=== PATIENT | male | born 1950 | race Caucasian/White ===

== ENCOUNTER 2021-08-12 11:53 | Inpatient (IN) | payer MEDICARE, MEDICAID ==
[~2021-08-12] VITALS: Ht 170.2 cm; Wt 49.1 kg
[2021-08-12] MEDS ORDERED: BEDAQUILINE FUMARATE 100 MG TABLET PO ONE (15:00)
[2021-08-12] MEDS ORDERED: ALBUTEROL SULFATE 5 MG/ML 20 ML NEB SOLN [BULK] NEB ONE (15:00)
[2021-08-12] MEDS ORDERED: PredniSONE 20 MG TABLET PO ONE (15:00)
[2021-08-12] MEDS ORDERED: IPRATROPIUM BROMIDE 0.5 MG/2.5 ML NEB SOLUTION NEB ONE (15:00)
[2021-08-12 15:27] LABS: BASOPHILS % (AUTO) 0.1 % (0.0-2.0); EOSINOPHILS % (AUTO) 0.1 % (1.0-6.0); HEMATOCRIT 43.7 % (41-53); HEMOGLOBIN 14.5 g/dL (13.5-17.5); LYMPHOCYTES # (AUTO) 0.5 K/uL (1.0-4.8); MEAN CORPUSCULAR HGB CONC 33.1 G/dL (31.0-37.0); MEAN CORPUSCULAR VOLUME 88 fL (80-100); MONOCYTES # (AUTO) 0.9 K/uL (0.1-1.0); NEUTROPHILS # (AUTO) 3.9 K/uL (1.8-7.7); NEUTROPHILS % (AUTO) 73.8 % (40.0-70.0); PLATELET COUNT (AUTO) 119 K/uL (150-450); RED BLOOD CELL COUNT(AUTO) 4.99 MIL/uL (4.50-5.90); RED CELL DISTRIBUTION WIDTH 13.3 % (11.5-14.5)
[2021-08-12 15:37] LABS: ANION GAP 5 mmol/L (8-16); CALCIUM, TOTAL 9.1 mg/dL (8.8-10.5); CARBON DIOXIDE 36 mmol/L (22-29); CHLORIDE 103 mmol/L (98-107); CREATININE 0.88 mg/dL (0.60-1.30); GLUCOSE,RANDOM 108 mg/dL (70-110); SODIUM SERUM 144 mmol/L (136-145); UREA NITROGEN, BLOOD 12 mg/dL (7-18)
[2021-08-12 15:42] LABS: GLOMERULAR FILTR. RATE CALC > 60 mL/min (>60)
[2021-08-12 15:43] LABS: ALANINE AMINOTRANSFERASE 23 U/L (12-78); ALBUMIN 3.2 g/dL (3.4-5.0); ALKALINE PHOSPHATASE 62 U/L (46-116); ASPARTATE AMINOTRANSFERASE 25 U/L (15-37); BILIRUBIN,TOTAL 0.5 mg/dL (0.1-1.0); TOTAL PROTEIN, SERUM 6.9 g/dL (6.4-8.2)
[2021-08-12 16:12] LABS: COVID AG,FIA SOURCE NASOPHARYNGEAL
[2021-08-12] MEDS ORDERED: ACETAMINOPHEN 325 MG TABLET PO PRN (16:15)
[2021-08-12 17:14] LABS: ABG BASE EXCESS 6.1 mmol/L (-2.0-3.0); ABG CARBOXYHEMOGLOBIN 0.7 % (0.0-1.5); ABG HCO3 28.8 mmol/L (22.0-26.0); ABG METHEMOGLOBIN 0.3 % (0.0-1.5); ABG OXYGEN CONTENT 20.8 mL/dL (15.0-23.0); ABG PCO2 52 mmHg (35-45); ABG PH 7.393 (7.35-7.450); ABG TOTAL HEMOGLOBIN 14.9 G/dL (12.0-18.0); PO2, ARTERIAL BG 152.7 mmHg (75.0-83.0); SOURCE, BLOOD GAS ARTERIAL
[2021-08-12 17:15] LABS: O2 DEVICE,BLOOD GAS BIPAP (ROOM AIR); SITE, BLOOD GAS LFT RADIAL; SPONTANEOUS VT, BG 859 ml
[2021-08-12] MEDS ORDERED: REMDESIVIR 200 MG in SODIUM CHLORIDE 0.9% 250 ML IV ONE (18:45)
[2021-08-12 19:02] LABS: BASOPHILS % (AUTO) 0.1 % (0.0-2.0); EOSINOPHILS % (AUTO) 0 % (1.0-6.0); HEMATOCRIT 40.6 % (41-53); HEMOGLOBIN 13.6 g/dL (13.5-17.5); LYMPHOCYTES # (AUTO) 0.2 K/uL (1.0-4.8); LYMPHOCYTES % (AUTO) 4.2 % (22.0-44.0); MEAN CORPUSCULAR HEMOGLOBIN 29.3 pg (26.0-34.0); MEAN CORPUSCULAR HGB CONC 33.4 G/dL (31.0-37.0); MEAN CORPUSCULAR VOLUME 88 fL (80-100); MONOCYTES # (AUTO) 0.5 K/uL (0.1-1.0); MONOCYTES % (AUTO) 9.6 % (2.0-9.0); NEUTROPHILS # (AUTO) 4.6 K/uL (1.8-7.7); PLATELET COUNT (AUTO) 104 K/uL (150-450); RED BLOOD CELL COUNT(AUTO) 4.63 MIL/uL (4.50-5.90); RED CELL DISTRIBUTION WIDTH 13.3 % (11.5-14.5)
[2021-08-12 19:12] LABS: NEUTROPHILS % (AUTO) 86.1 % (40.0-70.0)
[2021-08-12 19:27] LABS: ALANINE AMINOTRANSFERASE 21 U/L (12-78); ALKALINE PHOSPHATASE 54 U/L (46-116); ANION GAP 10 mmol/L (8-16); ASPARTATE AMINOTRANSFERASE 20 U/L (15-37); BILIRUBIN,TOTAL 0.5 mg/dL (0.1-1.0); C-REACTIVE PROTEIN QUANT 6.62 mg/dL (0.00-0.30); CALCIUM, TOTAL 8.7 mg/dL (8.8-10.5); CARBON DIOXIDE 32 mmol/L (22-29); CHLORIDE 101 mmol/L (98-107); FERRITIN 573 ng/mL (26-388); GLUCOSE,RANDOM 185 mg/dL (70-110); LACTATE DEHYDROGENASE 167 U/L (85-227); POTASSIUM 3.1 mmol/L (3.5-5.1); SODIUM SERUM 143 mmol/L (136-145); TOTAL PROTEIN, SERUM 6.5 g/dL (6.4-8.2); UREA NITROGEN, BLOOD 15 mg/dL (7-18)
[2021-08-12 19:28] LABS: GLOMERULAR FILTR. RATE CALC > 60 mL/min (>60)
[2021-08-12] MEDS: DOCUSATE SODIUM 100 MG CAPSULE PO SCH ×2 (21:00→21:43)
[2021-08-12] MEDS ORDERED: POTASSIUM CHLORIDE 10% 40 MEQ/30 ML LIQUID UDCUP PO ONE (21:15)
[2021-08-12] MEDS ORDERED: DIGOXIN 250 MCG/ML 2 ML AMP IVP ONE (23:15)
[2021-08-13] MEDS ORDERED: HEPARIN SODIUM,PORCINE 5,000 UNITS/ML VIAL SQ SCH
[2021-08-13 05:01] LABS: BASOPHILS % (AUTO) 0.2 % (0.0-2.0); EOSINOPHILS % (AUTO) 0 % (1.0-6.0); HEMATOCRIT 39.6 % (41-53); HEMOGLOBIN 13.3 g/dL (13.5-17.5); LYMPHOCYTES # (AUTO) 0.4 K/uL (1.0-4.8); LYMPHOCYTES % (AUTO) 6.6 % (22.0-44.0); MEAN CORPUSCULAR HEMOGLOBIN 29.3 pg (26.0-34.0); MEAN CORPUSCULAR HGB CONC 33.6 G/dL (31.0-37.0); MEAN CORPUSCULAR VOLUME 87 fL (80-100); MONOCYTES # (AUTO) 0.6 K/uL (0.1-1.0); MONOCYTES % (AUTO) 10.9 % (2.0-9.0); NEUTROPHILS # (AUTO) 4.7 K/uL (1.8-7.7); NEUTROPHILS % (AUTO) 82.3 % (40.0-70.0); PLATELET COUNT (AUTO) 121 K/uL (150-450); RED BLOOD CELL COUNT(AUTO) 4.54 MIL/uL (4.50-5.90); RED CELL DISTRIBUTION WIDTH 13.4 % (11.5-14.5)
[2021-08-13 05:28] LABS: ALANINE AMINOTRANSFERASE 19 U/L (12-78); ALBUMIN 2.8 g/dL (3.4-5.0); ALKALINE PHOSPHATASE 50 U/L (46-116); ANION GAP 5 mmol/L (8-16); ASPARTATE AMINOTRANSFERASE 21 U/L (15-37); BILIRUBIN,TOTAL 0.4 mg/dL (0.1-1.0); C-REACTIVE PROTEIN QUANT 7.62 mg/dL (0.00-0.30); CALCIUM, TOTAL 8.7 mg/dL (8.8-10.5); CARBON DIOXIDE 33 mmol/L (22-29); CHLORIDE 104 mmol/L (98-107); CREATININE 0.85 mg/dL (0.60-1.30); FERRITIN 624 ng/mL (26-388); GLUCOSE,RANDOM 118 mg/dL (70-110); POTASSIUM 4.1 mmol/L (3.5-5.1); SODIUM SERUM 142 mmol/L (136-145); TOTAL PROTEIN, SERUM 6.3 g/dL (6.4-8.2); UREA NITROGEN, BLOOD 18 mg/dL (7-18)
[2021-08-13 05:31] LABS: GLOMERULAR FILTR. RATE CALC > 60 mL/min (>60)
[2021-08-13] MEDS: DOCUSATE SODIUM 100 MG CAPSULE PO SCH ×2 (09:00→20:32)
[2021-08-13] MEDS ORDERED: PredniSONE 20 MG TABLET PO SCH (09:00)
[2021-08-13] MEDS: FAMOTIDINE 20 MG TABLET PO SCH (09:51)
[2021-08-13] MEDS: MULTIVITAMINS WITH MINERALS, THERAPEUTIC TABLET PO SCH (09:51)
[2021-08-13] MEDS: ASPIRIN 81 MG CHEWABLE TABLET PO SCH (09:51)
[2021-08-13] MEDS: DEXAMETHASONE SOD PHOS 4 MG/ML VIAL IVP SCH (11:27)
[2021-08-13] MEDS: ENOXAPARIN SODIUM 80 MG/0.8 ML PF SYRINGE SQ SCH ×2 (12:11→20:33)
[2021-08-13] MEDS: PYRAZINAMIDE 500 MG TABLET PO SCH (12:11)
[2021-08-13] MEDS: MOXIFLOXACIN HCL 400 MG TABLET PO SCH (12:12)
[2021-08-13 15:50] VITALS: BP 126/85
[2021-08-13 19:05] VITALS: BP 134/64
[2021-08-13] MEDS: REMDESIVIR 100 MG in SODIUM CHLORIDE 0.9% 250 ML IV SCH (20:33)
[2021-08-14] VITALS: BP 122/70
[2021-08-14 03:40] VITALS: BP 143/83
[2021-08-14 07:58] VITALS: BP 141/78
[2021-08-14 08:30] LABS: BASOPHILS % (AUTO) 0.1 % (0.0-2.0); EOSINOPHILS % (AUTO) 0 % (1.0-6.0); HEMATOCRIT 38.6 % (41-53); LYMPHOCYTES # (AUTO) 0.8 K/uL (1.0-4.8); MEAN CORPUSCULAR HEMOGLOBIN 29.4 pg (26.0-34.0); MEAN CORPUSCULAR HGB CONC 33.8 G/dL (31.0-37.0); MEAN CORPUSCULAR VOLUME 87 fL (80-100); MONOCYTES # (AUTO) 1.3 K/uL (0.1-1.0); MONOCYTES % (AUTO) 7.9 % (2.0-9.0); PLATELET COUNT (AUTO) 160 K/uL (150-450); RED BLOOD CELL COUNT(AUTO) 4.44 MIL/uL (4.50-5.90); RED CELL DISTRIBUTION WIDTH 13.2 % (11.5-14.5)
[2021-08-14] MEDS: DOCUSATE SODIUM 100 MG CAPSULE PO SCH ×4 (08:40→20:43)
[2021-08-14] MEDS: MOXIFLOXACIN HCL 400 MG TABLET PO SCH (08:40)
[2021-08-14] MEDS: ENOXAPARIN SODIUM 80 MG/0.8 ML PF SYRINGE SQ SCH ×2 (08:40→20:43)
[2021-08-14] MEDS: ASPIRIN 81 MG CHEWABLE TABLET PO SCH (08:41)
[2021-08-14] MEDS: PYRAZINAMIDE 500 MG TABLET PO SCH (08:41)
[2021-08-14] MEDS: FAMOTIDINE 20 MG TABLET PO SCH (08:42)
[2021-08-14] MEDS: MULTIVITAMINS WITH MINERALS, THERAPEUTIC TABLET PO SCH (08:42)
[2021-08-14] MEDS: DEXAMETHASONE SOD PHOS 4 MG/ML VIAL IVP SCH (08:42)
[2021-08-14 08:54] LABS: ALANINE AMINOTRANSFERASE 22 U/L (12-78); ALBUMIN 2.8 g/dL (3.4-5.0); ALKALINE PHOSPHATASE 54 U/L (46-116); ANION GAP 8 mmol/L (8-16); ASPARTATE AMINOTRANSFERASE 33 U/L (15-37); BILIRUBIN,TOTAL 0.5 mg/dL (0.1-1.0); C-REACTIVE PROTEIN QUANT 4.44 mg/dL (0.00-0.30); CALCIUM, TOTAL 8.8 mg/dL (8.8-10.5); CARBON DIOXIDE 29 mmol/L (22-29); CHLORIDE 101 mmol/L (98-107); CREATININE 0.84 mg/dL (0.60-1.30); FERRITIN 620 ng/mL (26-388); GLUCOSE,RANDOM 69 mg/dL (70-110); SODIUM SERUM 138 mmol/L (136-145); TOTAL PROTEIN, SERUM 6.3 g/dL (6.4-8.2); UREA NITROGEN, BLOOD 30 mg/dL (7-18)
[2021-08-14 09:14] LABS: GLOMERULAR FILTR. RATE CALC > 60 mL/min (>60)
[2021-08-14 12:37] VITALS: BP 137/65
[2021-08-14 16:12] VITALS: BP 139/73
[2021-08-14] MEDS: REMDESIVIR 100 MG in SODIUM CHLORIDE 0.9% 250 ML IV SCH (20:43)
[2021-08-14 20:45] VITALS: BP 118/72
[2021-08-15 00:42] VITALS: BP 155/91
[2021-08-15 04:54] VITALS: BP 149/91
[2021-08-15 07:39] VITALS: BP 127/73
[2021-08-15] MEDS: DOCUSATE SODIUM 100 MG CAPSULE PO SCH ×3 (08:00→20:11)
[2021-08-15] MEDS: BEDAQUILINE FUMARATE 100 MG TABLET PO SCH (08:00)
[2021-08-15] MEDS: PYRAZINAMIDE 500 MG TABLET PO SCH (08:00)
[2021-08-15] MEDS: MOXIFLOXACIN HCL 400 MG TABLET PO SCH (08:00)
[2021-08-15] MEDS: ASPIRIN 81 MG CHEWABLE TABLET PO SCH (08:01)
[2021-08-15] MEDS: MULTIVITAMINS WITH MINERALS, THERAPEUTIC TABLET PO SCH (08:01)
[2021-08-15] MEDS: FAMOTIDINE 20 MG TABLET PO SCH (08:01)
[2021-08-15] MEDS: DEXAMETHASONE SOD PHOS 4 MG/ML VIAL IVP SCH (08:02)
[2021-08-15] MEDS: ENOXAPARIN SODIUM 80 MG/0.8 ML PF SYRINGE SQ SCH ×2 (08:04→20:12)
[2021-08-15 10:14] LABS: BASOPHILS % (AUTO) 0.1 % (0.0-2.0); EOSINOPHILS % (AUTO) 0 % (1.0-6.0); HEMATOCRIT 45.7 % (41-53); HEMOGLOBIN 15.1 g/dL (13.5-17.5); LYMPHOCYTES % (AUTO) 6.1 % (22.0-44.0); MEAN CORPUSCULAR HEMOGLOBIN 28.8 pg (26.0-34.0); MEAN CORPUSCULAR HGB CONC 33.1 G/dL (31.0-37.0); MEAN CORPUSCULAR VOLUME 87 fL (80-100); NEUTROPHILS # (AUTO) 15.2 K/uL (1.8-7.7); PLATELET COUNT (AUTO) 236 K/uL (150-450); RED BLOOD CELL COUNT(AUTO) 5.25 MIL/uL (4.50-5.90); RED CELL DISTRIBUTION WIDTH 13.3 % (11.5-14.5)
[2021-08-15 10:20] LABS: NEUTROPHILS % (AUTO) 87.8 % (40.0-70.0)
[2021-08-15 10:38] LABS: ALANINE AMINOTRANSFERASE 27 U/L (12-78); ALBUMIN 3.2 g/dL (3.4-5.0); ALKALINE PHOSPHATASE 61 U/L (46-116); ANION GAP 11 mmol/L (8-16); ASPARTATE AMINOTRANSFERASE 32 U/L (15-37); BILIRUBIN,TOTAL 0.6 mg/dL (0.1-1.0); C-REACTIVE PROTEIN QUANT 2.14 mg/dL (0.00-0.30); CALCIUM, TOTAL 9.3 mg/dL (8.8-10.5); CARBON DIOXIDE 29 mmol/L (22-29); CHLORIDE 100 mmol/L (98-107); CREATININE 0.92 mg/dL (0.60-1.30); FERRITIN 608 ng/mL (26-388); GLUCOSE,RANDOM 117 mg/dL (70-110); PHOSPHORUS 3.4 mg/dL (2.5-4.9); POTASSIUM 4.7 mmol/L (3.5-5.1); SODIUM SERUM 140 mmol/L (136-145); TOTAL PROTEIN, SERUM 6.8 g/dL (6.4-8.2); UREA NITROGEN, BLOOD 31 mg/dL (7-18)
[2021-08-15 10:41] LABS: GLOMERULAR FILTR. RATE CALC > 60 mL/min (>60)
[2021-08-15 11:23] VITALS: BP 120/81
[2021-08-15 15:37] VITALS: BP 136/79
[2021-08-15 19:55] VITALS: BP 126/74
[2021-08-15] MEDS: REMDESIVIR 100 MG in SODIUM CHLORIDE 0.9% 250 ML IV SCH (20:11)
[2021-08-15] MEDS ORDERED: SODIUM CHLORIDE 0.9% 500 ML IV ONE (20:13)
[2021-08-16 00:15] VITALS: BP 145/88
[2021-08-16 04:11] VITALS: BP 146/77
[2021-08-16 07:42] VITALS: BP 133/82
[2021-08-16] MEDS: MOXIFLOXACIN HCL 400 MG TABLET PO SCH (08:37)
[2021-08-16] MEDS: ENOXAPARIN SODIUM 80 MG/0.8 ML PF SYRINGE SQ SCH ×3 (08:37→21:04)
[2021-08-16] MEDS: PYRAZINAMIDE 500 MG TABLET PO SCH (08:38)
[2021-08-16] MEDS: DOCUSATE SODIUM 100 MG CAPSULE PO SCH ×3 (08:39→21:00)
[2021-08-16] MEDS: ASPIRIN 81 MG CHEWABLE TABLET PO SCH (08:39)
[2021-08-16] MEDS: MULTIVITAMINS WITH MINERALS, THERAPEUTIC TABLET PO SCH (08:39)
[2021-08-16] MEDS: DEXAMETHASONE SOD PHOS 4 MG/ML VIAL IVP SCH (08:40)
[2021-08-16] MEDS: FAMOTIDINE 20 MG TABLET PO SCH (08:40)
[2021-08-16] MEDS: IPRATROPIUM BROMIDE 0.5 MG/2.5 ML NEB SOLUTION NEB PRN ×2 (09:20→20:17)
[2021-08-16] MEDS: ALBUTEROL SULFATE 2.5 MG/0.5 ML NEB SOLUTION NEB PRN ×2 (09:21→20:17)
[2021-08-16] MEDS ORDERED: ALBUTEROL SULFATE HFA 90 MCG/PUFF 8 GM INHALER IH PRN (12:15)
[2021-08-16 13:10] LABS: BASOPHILS % (AUTO) 0.1 % (0.0-2.0); EOSINOPHILS % (AUTO) 0 % (1.0-6.0); HEMATOCRIT 46.3 % (41-53); HEMOGLOBIN 15.2 g/dL (13.5-17.5); LYMPHOCYTES # (AUTO) 0.7 K/uL (1.0-4.8); LYMPHOCYTES % (AUTO) 3.6 % (22.0-44.0); MEAN CORPUSCULAR HEMOGLOBIN 28.4 pg (26.0-34.0); MEAN CORPUSCULAR HGB CONC 32.8 G/dL (31.0-37.0); MEAN CORPUSCULAR VOLUME 87 fL (80-100); MONOCYTES % (AUTO) 5.3 % (2.0-9.0); NEUTROPHILS # (AUTO) 16.7 K/uL (1.8-7.7); PLATELET COUNT (AUTO) 253 K/uL (150-450); RED BLOOD CELL COUNT(AUTO) 5.34 MIL/uL (4.50-5.90); RED CELL DISTRIBUTION WIDTH 13.7 % (11.5-14.5)
[2021-08-16 13:37] LABS: ALANINE AMINOTRANSFERASE 28 U/L (12-78); ALBUMIN 3.4 g/dL (3.4-5.0); ALKALINE PHOSPHATASE 57 U/L (46-116); ANION GAP 8 mmol/L (8-16); ASPARTATE AMINOTRANSFERASE 27 U/L (15-37); BILIRUBIN,TOTAL 0.5 mg/dL (0.1-1.0); CALCIUM, TOTAL 9.2 mg/dL (8.8-10.5); CARBON DIOXIDE 29 mmol/L (22-29); CHLORIDE 100 mmol/L (98-107); CREATININE 0.96 mg/dL (0.60-1.30); FERRITIN 587 ng/mL (26-388); GLUCOSE,RANDOM 120 mg/dL (70-110); POTASSIUM 4.8 mmol/L (3.5-5.1); SODIUM SERUM 137 mmol/L (136-145); UREA NITROGEN, BLOOD 27 mg/dL (7-18)
[2021-08-16 13:42] LABS: GLOMERULAR FILTR. RATE CALC > 60 mL/min (>60)
[2021-08-16 15:16] VITALS: BP 119/72
[2021-08-16 20:50] VITALS: BP 123/68
[2021-08-16] MEDS: REMDESIVIR 100 MG in SODIUM CHLORIDE 0.9% 250 ML IV SCH (21:04)
[2021-08-17 04:36] VITALS: BP 115/52
[2021-08-17 07:33] VITALS: BP 122/58
[2021-08-17] MEDS: ENOXAPARIN SODIUM 80 MG/0.8 ML PF SYRINGE SQ SCH ×2 (09:18→20:29)
[2021-08-17] MEDS: DEXAMETHASONE SOD PHOS 4 MG/ML VIAL IVP SCH (09:20)
[2021-08-17] MEDS: BEDAQUILINE FUMARATE 100 MG TABLET PO SCH (09:21)
[2021-08-17] MEDS: PYRAZINAMIDE 500 MG TABLET PO SCH (09:21)
[2021-08-17] MEDS: MOXIFLOXACIN HCL 400 MG TABLET PO SCH (09:21)
[2021-08-17] MEDS: FAMOTIDINE 20 MG TABLET PO SCH (09:22)
[2021-08-17] MEDS: ASPIRIN 81 MG CHEWABLE TABLET PO SCH (09:22)
[2021-08-17] MEDS: MULTIVITAMINS WITH MINERALS, THERAPEUTIC TABLET PO SCH (09:22)
[2021-08-17] MEDS: DOCUSATE SODIUM 100 MG CAPSULE PO SCH ×3 (09:22→20:41)
[2021-08-17 15:04] VITALS: BP 103/77
[2021-08-17 20:21] VITALS: BP 122/74
[2021-08-18 04:52] VITALS: BP 139/81
[2021-08-18 07:41] VITALS: BP 131/73
[2021-08-18] MEDS: DOCUSATE SODIUM 100 MG CAPSULE PO SCH ×3 (09:00→21:42)
[2021-08-18] MEDS: PYRAZINAMIDE 500 MG TABLET PO SCH (09:51)
[2021-08-18] MEDS: MOXIFLOXACIN HCL 400 MG TABLET PO SCH (09:51)
[2021-08-18] MEDS: MULTIVITAMINS WITH MINERALS, THERAPEUTIC TABLET PO SCH (09:52)
[2021-08-18] MEDS: ASPIRIN 81 MG CHEWABLE TABLET PO SCH (09:52)
[2021-08-18] MEDS: FAMOTIDINE 20 MG TABLET PO SCH (09:52)
[2021-08-18] MEDS: ALBUTEROL SULFATE 2.5 MG/0.5 ML NEB SOLUTION NEB PRN ×2 (11:47→20:30)
[2021-08-18] MEDS: IPRATROPIUM BROMIDE 0.5 MG/2.5 ML NEB SOLUTION NEB PRN ×2 (11:47→20:30)
[2021-08-18 15:02] VITALS: BP 134/76
[2021-08-18 19:45] VITALS: BP 121/56
[2021-08-18] MEDS: ENOXAPARIN SODIUM 30 MG/0.3 ML PF SYRINGE SQ SCH (21:42)
[2021-08-19 03:19] VITALS: BP 103/68
[2021-08-19] MEDS: MOXIFLOXACIN HCL 400 MG TABLET PO SCH (08:18)
[2021-08-19] MEDS: BEDAQUILINE FUMARATE 100 MG TABLET PO SCH (08:18)
[2021-08-19] MEDS: PYRAZINAMIDE 500 MG TABLET PO SCH (08:18)
[2021-08-19] MEDS: ASPIRIN 81 MG CHEWABLE TABLET PO SCH (08:18)
[2021-08-19] MEDS: ENOXAPARIN SODIUM 30 MG/0.3 ML PF SYRINGE SQ SCH ×2 (08:19→21:00)
[2021-08-19] MEDS: MULTIVITAMINS WITH MINERALS, THERAPEUTIC TABLET PO SCH (08:19)
[2021-08-19] MEDS: FAMOTIDINE 20 MG TABLET PO SCH (08:19)
[2021-08-19] MEDS: DOCUSATE SODIUM 100 MG CAPSULE PO SCH ×2 (08:23→21:08)
[2021-08-19 08:36] VITALS: BP 108/70
[2021-08-19] MEDS: IPRATROPIUM BROMIDE 0.5 MG/2.5 ML NEB SOLUTION NEB PRN (13:07)
[2021-08-19] MEDS: ALBUTEROL SULFATE 2.5 MG/0.5 ML NEB SOLUTION NEB PRN (13:07)
[2021-08-19 16:03] VITALS: BP 104/67
[2021-08-19 20:15] VITALS: BP 119/61
[2021-08-20 03:45] VITALS: BP 130/87
[2021-08-20 07:52] VITALS: BP 121/75
[2021-08-20] MEDS: ENOXAPARIN SODIUM 30 MG/0.3 ML PF SYRINGE SQ SCH ×3 (09:00→19:53)
[2021-08-20] MEDS: ASPIRIN 81 MG CHEWABLE TABLET PO SCH (09:30)
[2021-08-20] MEDS: MULTIVITAMINS WITH MINERALS, THERAPEUTIC TABLET PO SCH (09:30)
[2021-08-20] MEDS: FAMOTIDINE 20 MG TABLET PO SCH (09:30)
[2021-08-20] MEDS: DOCUSATE SODIUM 100 MG CAPSULE PO SCH ×3 (09:30→19:53)
[2021-08-20] MEDS: PYRAZINAMIDE 500 MG TABLET PO SCH (09:31)
[2021-08-20] MEDS: MOXIFLOXACIN HCL 400 MG TABLET PO SCH (09:31)
[2021-08-20 12:28] LABS: BASOPHILS % (AUTO) 0.1 % (0.0-2.0); EOSINOPHILS % (AUTO) 0.3 % (1.0-6.0); HEMATOCRIT 40.2 % (41-53); HEMOGLOBIN 13.1 g/dL (13.5-17.5); LYMPHOCYTES # (AUTO) 0.8 K/uL (1.0-4.8); LYMPHOCYTES % (AUTO) 4.7 % (22.0-44.0); MEAN CORPUSCULAR HEMOGLOBIN 29.1 pg (26.0-34.0); MEAN CORPUSCULAR HGB CONC 32.6 G/dL (31.0-37.0); MEAN CORPUSCULAR VOLUME 89 fL (80-100); MONOCYTES # (AUTO) 1.5 K/uL (0.1-1.0); MONOCYTES % (AUTO) 8.9 % (2.0-9.0); PLATELET COUNT (AUTO) 217 K/uL (150-450); RED BLOOD CELL COUNT(AUTO) 4.49 MIL/uL (4.50-5.90); RED CELL DISTRIBUTION WIDTH 13.7 % (11.5-14.5)
[2021-08-20] MEDS: IPRATROPIUM BROMIDE 0.5 MG/2.5 ML NEB SOLUTION NEB PRN (15:42)
[2021-08-20] MEDS: ALBUTEROL SULFATE 2.5 MG/0.5 ML NEB SOLUTION NEB PRN (15:42)
[2021-08-20 15:52] VITALS: BP 120/69
[2021-08-20 19:49] VITALS: BP 96/64
[2021-08-21 00:10] VITALS: BP 161/97
[2021-08-21 04:09] VITALS: BP 139/74
[2021-08-21 07:35] VITALS: BP 143/92
[2021-08-21] MEDS: DOCUSATE SODIUM 100 MG CAPSULE PO SCH ×2 (09:00→21:00)
[2021-08-21] MEDS: FAMOTIDINE 20 MG TABLET PO SCH ×2 (09:00→10:10)
[2021-08-21] MEDS: ENOXAPARIN SODIUM 30 MG/0.3 ML PF SYRINGE SQ SCH (09:00)
[2021-08-21] MEDS: ASPIRIN 81 MG CHEWABLE TABLET PO SCH ×2 (09:00→10:10)
[2021-08-21] MEDS: PYRAZINAMIDE 500 MG TABLET PO SCH (10:09)
[2021-08-21] MEDS: MULTIVITAMINS WITH MINERALS, THERAPEUTIC TABLET PO SCH (10:10)
[2021-08-21] MEDS: MOXIFLOXACIN HCL 400 MG TABLET PO SCH (10:10)
[2021-08-21 11:43] LABS: BASOPHILS % (AUTO) 0.4 % (0.0-2.0); EOSINOPHILS % (AUTO) 0.7 % (1.0-6.0); HEMATOCRIT 38.7 % (41-53); LYMPHOCYTES # (AUTO) 1.1 K/uL (1.0-4.8); LYMPHOCYTES % (AUTO) 6.9 % (22.0-44.0); MEAN CORPUSCULAR HEMOGLOBIN 29.4 pg (26.0-34.0); MEAN CORPUSCULAR HGB CONC 33.7 G/dL (31.0-37.0); MEAN CORPUSCULAR VOLUME 87 fL (80-100); MONOCYTES # (AUTO) 1.2 K/uL (0.1-1.0); MONOCYTES % (AUTO) 7.7 % (2.0-9.0); NEUTROPHILS # (AUTO) 13.1 K/uL (1.8-7.7); NEUTROPHILS % (AUTO) 84.3 % (40.0-70.0); PLATELET COUNT (AUTO) 232 K/uL (150-450); RED BLOOD CELL COUNT(AUTO) 4.43 MIL/uL (4.50-5.90); RED CELL DISTRIBUTION WIDTH 13.7 % (11.5-14.5)
[2021-08-21 12:01] LABS: ALANINE AMINOTRANSFERASE 24 U/L (12-78); ALBUMIN 2.9 g/dL (3.4-5.0); ALKALINE PHOSPHATASE 59 U/L (46-116); ANION GAP 6 mmol/L (8-16); ASPARTATE AMINOTRANSFERASE 24 U/L (15-37); BILIRUBIN,TOTAL 0.7 mg/dL (0.1-1.0); CALCIUM, TOTAL 9.2 mg/dL (8.8-10.5); CARBON DIOXIDE 32 mmol/L (22-29); CHLORIDE 105 mmol/L (98-107); CREATININE 0.97 mg/dL (0.60-1.30); GLUCOSE,RANDOM 96 mg/dL (70-110); POTASSIUM 4.3 mmol/L (3.5-5.1); SODIUM SERUM 143 mmol/L (136-145); TOTAL PROTEIN, SERUM 6.7 g/dL (6.4-8.2); UREA NITROGEN, BLOOD 22 mg/dL (7-18)
[2021-08-21 12:02] LABS: GLOMERULAR FILTR. RATE CALC > 60 mL/min (>60)
[2021-08-21 15:30] VITALS: BP 120/71
[2021-08-21 19:45] VITALS: BP 112/73
[2021-08-22] VITALS (8 sets, daily range): BP systolic 99–149; BP diastolic 54–102
[2021-08-22 00:54] LABS: ABG BASE EXCESS 3.4 mmol/L (-2.0-3.0); ABG CARBOXYHEMOGLOBIN 0.7 % (0.0-1.5); ABG HCO3 27.1 mmol/L (22.0-26.0); ABG METHEMOGLOBIN 0.3 % (0.0-1.5); ABG OXYGEN CONTENT 18.8 mL/dL (15.0-23.0); ABG OXYGEN SATURATION 99.4 % (95.0-98.0); ABG OXYHEMOGLOBIN 98.4 % (94.0-100.0); ABG PCO2 43 mmHg (35-45); ABG PH 7.424 (7.35-7.450); ABG TOTAL HEMOGLOBIN 13.1 G/dL (12.0-18.0); O2 DEVICE,BLOOD GAS HI FL CANNULA (ROOM AIR); PO2, ARTERIAL BG 270.3 mmHg (75.0-83.0); SITE, BLOOD GAS RT RADIAL; SOURCE, BLOOD GAS ARTERIAL; TEMPERATURE, FAHRENHEIT, BG 98.6 FAHREN (96.0-98.6)
[2021-08-22] MEDS: DOCUSATE SODIUM 100 MG CAPSULE PO SCH ×3 (09:00→21:00)
[2021-08-22] MEDS: ASPIRIN 81 MG CHEWABLE TABLET PO SCH (09:15)
[2021-08-22] MEDS: MULTIVITAMINS WITH MINERALS, THERAPEUTIC TABLET PO SCH (09:15)
[2021-08-22] MEDS: FAMOTIDINE 20 MG TABLET PO SCH (09:15)
[2021-08-22] MEDS: PYRAZINAMIDE 500 MG TABLET PO SCH (09:16)
[2021-08-22] MEDS: MOXIFLOXACIN HCL 400 MG TABLET PO SCH (09:16)
[2021-08-22] MEDS: BEDAQUILINE FUMARATE 100 MG TABLET PO SCH (09:16)
[2021-08-22 16:34] LABS: BASOPHILS % (AUTO) 0.3 % (0.0-2.0); EOSINOPHILS % (AUTO) 0.6 % (1.0-6.0); HEMATOCRIT 35.3 % (41-53); HEMOGLOBIN 11.8 g/dL (13.5-17.5); LYMPHOCYTES % (AUTO) 8.7 % (22.0-44.0); MEAN CORPUSCULAR HEMOGLOBIN 29.2 pg (26.0-34.0); MEAN CORPUSCULAR HGB CONC 33.4 G/dL (31.0-37.0); MEAN CORPUSCULAR VOLUME 87 fL (80-100); MONOCYTES # (AUTO) 0.9 K/uL (0.1-1.0); MONOCYTES % (AUTO) 8.3 % (2.0-9.0); NEUTROPHILS # (AUTO) 9.3 K/uL (1.8-7.7); NEUTROPHILS % (AUTO) 82.1 % (40.0-70.0); PLATELET COUNT (AUTO) 218 K/uL (150-450); RED BLOOD CELL COUNT(AUTO) 4.04 MIL/uL (4.50-5.90); RED CELL DISTRIBUTION WIDTH 13.4 % (11.5-14.5)
[2021-08-22 16:44] LABS: ALANINE AMINOTRANSFERASE 23 U/L (12-78); ALBUMIN 2.6 g/dL (3.4-5.0); ALKALINE PHOSPHATASE 55 U/L (46-116); ANION GAP 3 mmol/L (8-16); ASPARTATE AMINOTRANSFERASE 20 U/L (15-37); BILIRUBIN,TOTAL 0.9 mg/dL (0.1-1.0); CALCIUM, TOTAL 8.8 mg/dL (8.8-10.5); CARBON DIOXIDE 32 mmol/L (22-29); CHLORIDE 104 mmol/L (98-107); CREATININE 0.92 mg/dL (0.60-1.30); GLUCOSE,RANDOM 142 mg/dL (70-110); POTASSIUM 4.5 mmol/L (3.5-5.1); SODIUM SERUM 139 mmol/L (136-145); TOTAL PROTEIN, SERUM 6.1 g/dL (6.4-8.2); UREA NITROGEN, BLOOD 23 mg/dL (7-18)
[2021-08-22 16:50] LABS: GLOMERULAR FILTR. RATE CALC > 60 mL/min (>60)
[2021-08-23 04:00] VITALS: BP 116/64
[2021-08-23 07:08] VITALS: BP 100/41
[2021-08-23 10:46] VITALS: BP 134/68
[2021-08-23] MEDS ORDERED: SODIUM CHLORIDE 0.9% 1,000 ML IV ONE (12:00)
[2021-08-23 15:40] VITALS: BP 162/71
[2021-08-23] MEDS: MOXIFLOXACIN HCL 400 MG TABLET PO SCH (15:59)
[2021-08-23] MEDS: PYRAZINAMIDE 500 MG TABLET PO SCH (16:00)
[2021-08-23] MEDS: DOCUSATE SODIUM 100 MG CAPSULE PO SCH ×2 (16:00→20:02)
[2021-08-23] MEDS: ASPIRIN 81 MG CHEWABLE TABLET PO SCH (16:00)
[2021-08-23] MEDS: MULTIVITAMINS WITH MINERALS, THERAPEUTIC TABLET PO SCH (16:01)
[2021-08-23] MEDS: FAMOTIDINE 20 MG TABLET PO SCH (16:01)
[2021-08-23 20:20] VITALS: BP 122/79
[2021-08-23 23:38] VITALS: BP 129/92
[2021-08-24 06:17] LABS: BASOPHILS % (AUTO) 0.3 % (0.0-2.0); EOSINOPHILS % (AUTO) 1.1 % (1.0-6.0); HEMATOCRIT 35.2 % (41-53); HEMOGLOBIN 11.6 g/dL (13.5-17.5); LYMPHOCYTES # (AUTO) 1.4 K/uL (1.0-4.8); LYMPHOCYTES % (AUTO) 11.7 % (22.0-44.0); MEAN CORPUSCULAR HEMOGLOBIN 28.9 pg (26.0-34.0); MEAN CORPUSCULAR HGB CONC 32.9 G/dL (31.0-37.0); MEAN CORPUSCULAR VOLUME 88 fL (80-100); MONOCYTES # (AUTO) 1.3 K/uL (0.1-1.0); MONOCYTES % (AUTO) 10.5 % (2.0-9.0); NEUTROPHILS # (AUTO) 9.3 K/uL (1.8-7.7); NEUTROPHILS % (AUTO) 76.4 % (40.0-70.0); PLATELET COUNT (AUTO) 211 K/uL (150-450); RED CELL DISTRIBUTION WIDTH 13.5 % (11.5-14.5)
[2021-08-24 08:15] VITALS: BP 145/82
[2021-08-24] MEDS: DOCUSATE SODIUM 100 MG CAPSULE PO SCH ×2 (09:11→21:00)
[2021-08-24] MEDS: ASPIRIN 81 MG CHEWABLE TABLET PO SCH (09:12)
[2021-08-24] MEDS: PYRAZINAMIDE 500 MG TABLET PO SCH (09:12)
[2021-08-24] MEDS: FAMOTIDINE 20 MG TABLET PO SCH (09:12)
[2021-08-24] MEDS: MULTIVITAMINS WITH MINERALS, THERAPEUTIC TABLET PO SCH (09:12)
[2021-08-24] MEDS: BEDAQUILINE FUMARATE 100 MG TABLET PO SCH (09:12)
[2021-08-24] MEDS: MOXIFLOXACIN HCL 400 MG TABLET PO SCH (09:13)
[2021-08-24 11:30] VITALS: BP 131/76
[2021-08-24 16:23] VITALS: BP 116/65
[2021-08-24 21:06] VITALS: BP 121/74
[2021-08-24 23:43] VITALS: BP 156/90
[2021-08-25] VITALS (7 sets, daily range): BP systolic 99–162; BP diastolic 54–105
[2021-08-25] MEDS: ASPIRIN 81 MG CHEWABLE TABLET PO SCH (08:55)
[2021-08-25] MEDS: FAMOTIDINE 20 MG TABLET PO SCH (08:55)
[2021-08-25] MEDS: DOCUSATE SODIUM 100 MG CAPSULE PO SCH ×2 (08:55→21:00)
[2021-08-25] MEDS: MOXIFLOXACIN HCL 400 MG TABLET PO SCH (08:55)
[2021-08-25] MEDS: PYRAZINAMIDE 500 MG TABLET PO SCH (08:55)
[2021-08-25] MEDS: MULTIVITAMINS WITH MINERALS, THERAPEUTIC TABLET PO SCH (09:00)
[2021-08-25] MEDS ORDERED: TOCILIZUMAB 400 MG in SODIUM CHLORIDE 0.9% 80 ML IV ONE (21:00)
[2021-08-26 06:25] VITALS: BP 116/68
[2021-08-26 08:00] VITALS: BP 140/84
[2021-08-26] MEDS: DOCUSATE SODIUM 100 MG CAPSULE PO SCH ×2 (09:00→21:25)
[2021-08-26] MEDS: ASPIRIN 81 MG CHEWABLE TABLET PO SCH (09:23)
[2021-08-26] MEDS: PYRAZINAMIDE 500 MG TABLET PO SCH (09:24)
[2021-08-26] MEDS: MOXIFLOXACIN HCL 400 MG TABLET PO SCH (09:25)
[2021-08-26] MEDS: FAMOTIDINE 20 MG TABLET PO SCH (09:25)
[2021-08-26] MEDS: BEDAQUILINE FUMARATE 100 MG TABLET PO SCH (09:25)
[2021-08-26 11:17] VITALS: BP 125/82
[2021-08-26] MEDS: MULTIVITAMINS WITH MINERALS, THERAPEUTIC TABLET PO SCH (11:48)
[2021-08-26 15:47] VITALS: BP 136/78
[2021-08-26 19:20] VITALS: BP 146/80
[2021-08-26] MEDS: LORazepam 0.5 MG TABLET PO PRN (21:25)
[2021-08-26 23:35] VITALS: BP 136/70
[2021-08-27 03:45] VITALS: BP 136/74
[2021-08-27 07:40] VITALS: BP 129/81
[2021-08-27] MEDS: DOCUSATE SODIUM 100 MG CAPSULE PO SCH ×2 (08:08→19:53)
[2021-08-27] MEDS: ASPIRIN 81 MG CHEWABLE TABLET PO SCH (08:08)
[2021-08-27] MEDS: FAMOTIDINE 20 MG TABLET PO SCH ×3 (08:08→19:55)
[2021-08-27] MEDS: MULTIVITAMINS WITH MINERALS, THERAPEUTIC TABLET PO SCH (08:08)
[2021-08-27 12:05] VITALS: BP 145/108
[2021-08-27] MEDS: LORazepam 0.5 MG TABLET PO PRN ×2 (14:26→19:53)
[2021-08-27 16:20] VITALS: BP 154/87
[2021-08-27] MEDS: ALBUTEROL SULFATE 2.5 MG/0.5 ML NEB SOLUTION NEB PRN (17:41)
[2021-08-27] MEDS: IPRATROPIUM BROMIDE 0.5 MG/2.5 ML NEB SOLUTION NEB PRN (17:41)
[2021-08-27 20:12] VITALS: BP 131/93
[2021-08-28] VITALS (7 sets, daily range): BP systolic 117–150; BP diastolic 78–96
[2021-08-28] MEDS: DOCUSATE SODIUM 100 MG CAPSULE PO SCH ×2 (07:23→20:37)
[2021-08-28] MEDS: FAMOTIDINE 20 MG TABLET PO SCH ×2 (09:17→20:09)
[2021-08-28] MEDS: MULTIVITAMINS WITH MINERALS, THERAPEUTIC TABLET PO SCH (09:17)
[2021-08-28 12:41] LABS: COVID AG,FIA SOURCE NASAL SWAB
[2021-08-29 03:30] VITALS: BP 146/73
[2021-08-29 07:54] VITALS: BP 128/91
[2021-08-29] MEDS: DOCUSATE SODIUM 100 MG CAPSULE PO SCH (08:44)
[2021-08-29] MEDS: FAMOTIDINE 20 MG TABLET PO SCH (08:44)
[2021-08-29] MEDS: MULTIVITAMINS WITH MINERALS, THERAPEUTIC TABLET PO SCH (08:45)
[2021-08-29 11:11] VITALS: BP 132/82
[2021-08-29 15:14] VITALS: BP 110/87
== END 2021-08-29 16:25 | disposition hospice, home (50) | DRG 177 ==
LOC: EMS 11:54 → 5S 08-13 14:32 → 6N 08-15 11:55 → 5N 08-21 23:55
PROVIDERS: ADMIT Internal Medicine; ATTEND Internal Medicine
PROC: XW033E5 Introduction of Remdesivir Anti-infective into Peripheral Vein, Percutaneous Approach, New Technology Group 5 (ICD-10-PCS; 2021-08-16)
PROC: 5A0935A Assistance with Respiratory Ventilation, Less than 24 Consecutive Hours, High Flow/Velocity Cannula (ICD-10-PCS; principal; 2021-08-21)
PROC: 5A0935A Assistance with Respiratory Ventilation, Less than 24 Consecutive Hours, High Flow/Velocity Cannula (ICD-10-PCS; 2021-08-22)
PROC: 5A0935A Assistance with Respiratory Ventilation, Less than 24 Consecutive Hours, High Flow/Velocity Cannula (ICD-10-PCS; 2021-08-25)
PROC: XW033H5 Introduction of Tocilizumab into Peripheral Vein, Percutaneous Approach, New Technology Group 5 (ICD-10-PCS; 2021-08-25)
PROC: 5A0935A Assistance with Respiratory Ventilation, Less than 24 Consecutive Hours, High Flow/Velocity Cannula (ICD-10-PCS; 2021-08-26)
PROC: 5A0935A Assistance with Respiratory Ventilation, Less than 24 Consecutive Hours, High Flow/Velocity Cannula (ICD-10-PCS; 2021-08-27)
PROC: 5A0935A Assistance with Respiratory Ventilation, Less than 24 Consecutive Hours, High Flow/Velocity Cannula (ICD-10-PCS; 2021-08-28)
DX: U07.1 COVID-19 (principal); J12.82 Pneumonia due to coronavirus disease 2019; J96.21 Acute and chronic respiratory failure with hypoxia; E43 Unspecified severe protein-calorie malnutrition; J44.1 Chronic obstructive pulmonary disease with (acute) exacerbation; Z16.24 Resistance to multiple antibiotics; Z68.1 Body mass index [BMI] 19.9 or less, adult; D68.59 Other primary thrombophilia; J44.0 Chronic obstructive pulmonary disease with (acute) lower respiratory infection; J98.4 Other disorders of lung; Z66 Do not resuscitate; F17.200 Nicotine dependence, unspecified, uncomplicated; Z99.81 Dependence on supplemental oxygen; Z86.11 Personal history of tuberculosis
CPT/HCPCS: 36600; 71045; 80053; 82728; 82805; 83615; 83735; 84100; 84145; 84484; 85025; 85379; 86140; 87206; 93005; 94640; 94644; 94660; 97116; 97162; 97530; 99285; G0238; J1100; J1160; J1650; J3535; J7030; J7040; J7050; Q9967; 36415-L1; 36415-TC; J7611; J7613